=== PATIENT | female | born 1960 | race American Indian/Alaskan Native ===

== ENCOUNTER 2018-10-27 14:30 | Inpatient (IN) | payer MEDICARE ==
--- NOTE | 2018-10-27 15:12 | XRay Report ---
AP CHEST: HISTORY: chest pain AP view of the chest demonstrates a normal mediastinal and cardiac contour with clear lungs and normal bony and soft tissue structures. IMPRESSION: Unremarkable AP chest.
--- NOTE | 2018-10-27 15:34 | Emergency Department Report ---
ED Chest Pain HPI - General Chief Complaint: Chest Pain Stated Complaint: CHEST PAIN Time Seen by Provider: 10/27/18 14:40 Source: patient, EMS Mode of arrival: Stretcher Limitations: No Limitations - History of Present Illness Initial Comments: 58-year-old female presents to the emergency department from home via EMS with a complaint of some left-sided chest pain that started this morning around 7 AM. It is a sharp stabbing sensation and radiates towards her left jaw. It is associated with some shortness of breath, nausea and vomiting. The patient says that this started after a 5-6 day binge drinking session. She also complains of some black stools and some vomiting of blood. She has a past medical history of liver cirrhosis, neuropathy. She says that she quit drinking for a while but just started up on the . She was given a full dose aspirin and 2 nitroglycerin in route with EMS without any relief but it did cause her to have a headache. Primary care physician is Dr. Nick Bellamy and she also has a youth associate through [place]. No recent travel or sick contacts at home. Severity scale (0 -10): 8 - Related Data Home Medications Medication Instructions Recorded Confirmed Last Taken Benztropine [Cogentin] 3 mg PO DAILY 10/27/18 10/27/18 Unknown Gabapentin [Neurontin] 300 mg PO Q8HR 10/27/18 10/27/18 Unknown Meloxicam 15 mg PO BID 10/27/18 10/27/18 Unknown Potassium Chloride [Klor-Con 10] 10 meq PO BID 10/27/18 10/27/18 Unknown buPROPion XL [Wellbutrin Xl] 150 mg PO QAM 10/27/18 10/27/18 Unknown hydrOXYzine PAMOATE [Vistaril] 100 mg PO BID 10/27/18 10/27/18 Unknown predniSONE [Deltasone] 20 mg PO QDAY 10/27/18 10/27/18 Unknown Allergies Allergy/AdvReac Type Severity Reaction Status Date / Time No Known Allergies Allergy Unverified 10/27/18 14:32 Heart Score - HEART Score History: Slightly suspicious EKG: Non-specific Age: 45-65 Risk factors: 1-2 risk factors Troponin: < normal limit HEART Score: 3 - Critical Actions Critical Actions: 0-3 pts:0.9-1.7%risk of adverse cardiac event.Candidate for discharge ED Review of Systems ROS: Stated complaint: CHEST PAIN Other details as noted in HPI Comment: All other systems reviewed and negative Constitutional: denies: chills, fever Eyes: denies: eye pain, vision change ENT: denies: ear pain, throat pain Respiratory: shortness of breath. denies: cough Cardiovascular: chest pain. denies: palpitations Gastrointestinal: nausea, vomiting Genitourinary: denies: dysuria, frequency Musculoskeletal: denies: back pain, arthralgia Skin: denies: rash, lesions Neurological: headache. denies: weakness, numbness, paresthesias ED Past Medical Hx - Past Medical History Previous Medical History?: Yes Additional medical history: cirrhosis. neuropathy - Surgical History Past Surgical History?: Yes Additional Surgical History: tonsilectomy - Social History Smoking Status: Never Smoker Substance Use Type: Alcohol - Medications Home Medications: Home Medications Medication Instructions Recorded Confirmed Last Taken Type Benztropine [Cogentin] 3 mg PO DAILY 10/27/18 10/27/18 Unknown History Gabapentin [Neurontin] 300 mg PO Q8HR 10/27/18 10/27/18 Unknown History Meloxicam 15 mg PO BID 10/27/18 10/27/18 Unknown History Potassium Chloride [Klor-Con 10] 10 meq PO BID 10/27/18 10/27/18 Unknown History buPROPion XL [Wellbutrin Xl] 150 mg PO QAM 10/27/18 10/27/18 Unknown History hydrOXYzine PAMOATE [Vistaril] 100 mg PO BID 10/27/18 10/27/18 Unknown History predniSONE [Deltasone] 20 mg PO QDAY 10/27/18 10/27/18 Unknown History ED Physical Exam - General Limitations: No Limitations - Other Other exam information: GENERAL: The patient is well-developed well-nourished. HEENT: Normocephalic. Atraumatic. Patient has moist mucous membranes. EYES: Extraocular motions are intact. Pupils are equal and reactive to light bilaterally. NECK: Supple. Trachea is midline. CHEST/LUNGS: Clear to auscultation. There is no respiratory distress noted. HEART/CARDIOVASCULAR: Regular. There is no tachycardia. There is no obvious murmur. ABDOMEN: Abdomen is soft, nontender. Patient has normal bowel sounds. There is no abdominal distention. SKIN: Skin is warm and dry. NEURO: The patient is awake, alert, and oriented. The patient is cooperative. The patient has no focal neurologic deficits. The patient has normal speech. MUSCULOSKELETAL: There is no tenderness or deformity. There is no limitation range of motion. There is no evidence of acute injury. RECTAL: There is brown stool without gross blood. Stool negative on guaiac testing. ED Course Vital Signs 10/27/18 10/27/18 10/27/18 14:42 14:45 14:50 Temperature 98.7 F Pulse Rate 92 H 81 89 Respiratory 16 15 16 Rate Blood Pressure 124/70 Blood Pressure 124/78 [Right] O2 Sat by Pulse 98 98 100 Oximetry 10/27/18 10/27/18 10/27/18 15:00 16:00 17:00 Temperature Pulse Rate 85 94 H 79 Respiratory 11 L 20 11 L Rate Blood Pressure 120/68 115/70 127/70 Blood Pressure [Right] O2 Sat by Pulse 99 94 98 Oximetry 10/27/18 10/27/18 10/27/18 18:00 18:30 19:01 Temperature Pulse Rate 79 85 Respiratory 16 18 14 Rate Blood Pressure 149/80 155/81 Blood Pressure [Right] O2 Sat by Pulse 100 Oximetry 10/27/18 10/27/18 20:00 21:01 Temperature Pulse Rate 77 100 H Respiratory 14 14 Rate Blood Pressure 150/77 134/65 Blood Pressure [Right] O2 Sat by Pulse 97 99 Oximetry FELIX score - Felix Score Age > 65: (0) No Aspirin use within the Past 7 Days: (0) No 3 or more CAD Risk Factors: (0) No 2 or more Angina events in past 24 hrs: (1) Yes Known CAD with more than 50% Stenosis: (0) No Elevated Cardiac Markers: (0) No ST Deviation Greater than 0.5mm: (0) No FELIX Score: 1 ED Medical Decision Making - Lab Data Result diagrams: 10/28/18 04:49 10/28/18 04:49 - EKG Data -: EKG Interpreted by Me EKG shows normal: sinus rhythm, axis, intervals, QRS complexes, ST-T waves Rate: normal - EKG Data When compared to previous EKG there are: previous EKG unavailable Interpretation: normal EKG - Radiology Data Radiology results: image reviewed interpreted by me: Chest x-ray does not show any pneumothorax, pleural effusion, pneumonia or obvious focal consolidation. - Medical Decision Making This patient presents to the emergency department with complaint of some chest pain that started after a 5 or 6 day alcohol binge. Patient did not have any withdrawal signs at first but she later developed some tremors and complained of palpitations. EKG did not show any signs of ST elevation OH or dysrhythmia. Labs were mostly unremarkable including negative troponins 3. The patient also complained of some melena and hematemesis. There is been no nausea or vomiting while in the emergency department. I did a rectal examination and there was no gross blood or positive stool on guaiac testing. The patient will be admitted to the hospital for further evaluation of her alcohol withdrawal and her chest pain. She was excepted for admission by the hospitalist service. - Differential Diagnosis GI bleed, OH, costochondritis, GERD, alcohol withdrawal Critical Care Time: No Critical care attestation.: If time is entered above; I have spent that time in minutes in the direct care of this critically ill patient, excluding procedure time. ED Disposition Clinical Impression: Acute chest pain, Hypokalemia Alcohol withdrawal Qualifiers: Complication of substance-induced condition: uncomplicated Qualified Code(s): F10.230 - Alcohol dependence with withdrawal, uncomplicated Disposition: DC-09 OP ADMIT IP TO THIS HOSP Is pt being admited?: Yes Condition: Stable Time of Disposition: 19:56
[2018-10-27] MEDS ORDERED: NACL 0.9% 1000 ML 1,000 ML IV ONE (15:47)
[2018-10-27] MEDS ORDERED: PROTONIX IV ONE (15:47)
[2018-10-27] MEDS ORDERED: MORPHINE IV ONE (15:47)
[2018-10-27 15:48] LABS: Basophils % (Auto) 0.7 % (0.0-1.8); Eosinophils % (Auto) 0.7 % (0.0-4.3); Hematocrit 33.9 % (30.3-42.9); Hemoglobin 11.6 gm/dl (10.1-14.3); Lymphocytes # (Auto) 1.1 K/mm3 (1.2-5.4); Lymphocytes % (Auto) 18.8 % (13.4-35.0); Mean Corpuscular HGB Conc 34 % (30-34); Mean Corpuscular Volume 97 fl (79-97); Monocytes # (Auto) 0.3 K/mm3 (0.0-0.8); Monocytes % (Auto) 5.7 % (0.0-7.3); Red Blood Count 3.52 M/mm3 (3.65-5.03); Red Cell Distribution Width 16.6 % (13.2-15.2)
[2018-10-27 16:03] LABS: BUN/Creatinine Ratio 7; Blood Urea Nitrogen 4 mg/dL (7-17); Calcium 8.8 mg/dL (8.4-10.2); Hemolysis Index 12
[2018-10-27] MEDS ORDERED: K-DUR PO ONE (16:19)
[2018-10-27] MEDS ORDERED: NACL 0.9% 50 ML ONE (16:36)
[2018-10-27] MEDS ORDERED: MORPHINE ONE (16:38)
[2018-10-27] MEDS ORDERED: ATIVAN IV PRN (18:15)
[2018-10-27] MEDS: ATIVAN IV PRN (20:24)
[2018-10-27] MEDS ORDERED: TYLENOL PO PRN (21:47)
[2018-10-27] MEDS ORDERED: SODIUM CHLORIDE FLUSH SYRINGE 10 ML IV PRN (21:47)
[2018-10-27] MEDS ORDERED: MORPHINE IV PRN (21:47)
[2018-10-27] MEDS ORDERED: ZOFRAN IV PRN (21:47)
--- NOTE | 2018-10-27 21:50 | History and Physical Report ---
History of Present Illness Date of examination: 10/27/18 Date of admission: 10/27/18 19:56 History of present illness: 58-year-old woman with a history of cirrhosis, neuropathy, right foot drop comes to the emergency room with complaints of chest pain. Pain is in the epigastric area which she describes as sharp pain, intermittent for less than 1 minute, radiated into the left jaw, intensity 5/10, cannot identify exacerbating or relieving factors. Also complained of black stool 2 days, told 3 episodes, vomiting blood. Denies NSAID use but home medication reveal meloxican Admits to vomiting, shortness of breath, palpitation Review of systems Constitutional: no weight loss, chills, fever Ears, eyes, nose, mouth and throat: no nasal congestion, no nasal discharge, no sinus pressure, no vision change, no red eye. Neck: No neck pain or rigidity. Cardiovascular: + palpitations Respiratory: no cough, shortness of breath Gastrointestinal: no hematochezia, abdominal pain Genitourinary : no frequency , no hematuria Musculoskeletal: no joint swelling or muscle ache Integumentary: no rash, no pruritis Neurological: no parathesias, no focal weakness Endocrine: no cold or heat intolerance, no polyuria or polydipsia Hematologic/Lymphatic: no easy bruising, no easy bleeding, no gland swelling Allergic/Immunologic: no urticaria, no angioedema. PAST MEDICAL HISTORY: cirrhosis, neuropathy, right foot drop PAST SURGICAL HISTORY: Tonsillectomy SOCIAL HISTORY: Drinks 1 pint of vodka a day, no drugs, tobacco FAMILY HISTORY: Hypertension Medications and Allergies Allergies Allergy/AdvReac Type Severity Reaction Status Date / Time No Known Allergies Allergy Unverified 10/27/18 14:32 Home Medications Medication Instructions Recorded Confirmed Last Taken Type Benztropine [Cogentin] 3 mg PO DAILY 10/27/18 10/27/18 Unknown History Gabapentin [Neurontin] 300 mg PO Q8HR 10/27/18 10/27/18 Unknown History Meloxicam 15 mg PO BID 10/27/18 10/27/18 Unknown History Potassium Chloride [Klor-Con 10] 10 meq PO BID 10/27/18 10/27/18 Unknown History buPROPion XL [Wellbutrin Xl] 150 mg PO QAM 10/27/18 10/27/18 Unknown History hydrOXYzine PAMOATE [Vistaril] 100 mg PO BID 10/27/18 10/27/18 Unknown History predniSONE [Deltasone] 20 mg PO QDAY 10/27/18 10/27/18 Unknown History Active Meds: Active Medications Lorazepam (Ativan) 2 mg IV Q1HR PRN PRN Reason: [facility]-Ar 8-15 Last Admin: 10/27/18 20:24 Dose: 2 mg Documented by: Lorazepam (Ativan) 4 mg IV Q1HR PRN PRN Reason: [facility]-Ar 16- Exam - Physical Exam Narrative exam: General Apperance: The patient lying in bed, breathing comfortable HEENT: Normocephalic, atraumatic. Pupils equally round and reactive to light, EOMI, no sclericterus or JVD or thyromegaly or nodule. , no carotid bruit, mucous membranes moist, no exudate or erythema Heart: S1-S2, regular is rhythm Lungs: Clear to auscultation bilaterally, breathing comfortable Abdomen: Positive bowel sounds, soft, nontender, nondistended, no organomegaly Extremities: No edema cyanosis clubbing Skin: no rash, nodule, warm and dry Neuro: cranial nerves 2-12 intact, speech is fluent, motor/sensory intact - Constitutional Vitals: Temp Pulse Resp BP Pulse Ox 98.7 F 77 14 150/77 97 10/27/18 14:50 10/27/18 20:00 10/27/18 20:00 10/27/18 20:00 10/27/18 20:00 Results - Labs CBC & Chem 7: 10/27/18 15:29 10/27/18 15:29 Labs: Abnormal lab results 10/27/18 10/27/18 10/27/18 Range/Units 15:29 15:29 18:39 RBC 3.52 L (3.65-5.03) M/mm3 MCH 33 H (28-32) pg RDW 16.6 H (13.2-15.2) % Lymph # 1.1 L (1.2-5.4) K/mm3 Seg Neutrophils % 74.1 H (40.0-70.0) % Sodium 147 H (137-145) mmol/L Potassium 3.0 L (3.6-5.0) mmol/L Carbon Dioxide 21 L (22-30) mmol/L BUN 4 L (7-17) mg/dL Creatinine 0.6 L (0.7-1.2) mg/dL Glucose 119 H (65-100) mg/dL Magnesium 1.50 L (1.7-2.3) mg/dL - Imaging and Cardiology EKG: image reviewed Chest x-ray: report reviewed Assessment and Plan Assessment Upper GI bleed, rule out gastric ulcer Chest pain Hypernatremia Thrombocytopenia Cirrhosis/Alcohol related neuropathy, right foot drop Alcohol abuse Plan Admit to medicine Start Protonix, IV fluid, consult GI Check cardiac enzymes, obtain stress test Start CIWA protocol with IV ativan DVT prophylaxis
[2018-10-27] MEDS: SODIUM CHLORIDE FLUSH SYRINGE 10 ML IV SCH (23:00)
[2018-10-27 23:02] LABS: Platelet Count 66 K/mm3 (140-440)
[2018-10-28] MEDS: D5/0.45NS 1,000 ML IV SCH (02:45)
[2018-10-28] MEDS: ATIVAN IV PRN ×2 (02:58→14:10)
[2018-10-28 06:01] LABS: Basophils % (Auto) 0.8 % (0.0-1.8); Eosinophils # (Auto) 0.1 K/mm3 (0.0-0.4); Eosinophils % (Auto) 2.1 % (0.0-4.3); Hematocrit 30.1 % (30.3-42.9); Hemoglobin 10.1 gm/dl (10.1-14.3); Lymphocytes # (Auto) 0.8 K/mm3 (1.2-5.4); Lymphocytes % (Auto) 20.2 % (13.4-35.0); Mean Corpuscular HGB Conc 34 % (30-34); Mean Corpuscular Volume 96 fl (79-97); Monocytes # (Auto) 0.3 K/mm3 (0.0-0.8); Monocytes % (Auto) 6.4 % (0.0-7.3); Red Blood Count 3.12 M/mm3 (3.65-5.03); Red Cell Distribution Width 16.3 % (13.2-15.2)
[2018-10-28 06:16] LABS: Platelet Count 40 K/mm3 (140-440)
[2018-10-28 06:28] LABS: BUN/Creatinine Ratio 13; Blood Urea Nitrogen 5 mg/dL (7-17); Calcium 8.1 mg/dL (8.4-10.2); Hemolysis Index 59
[2018-10-28] MEDS: NEURONTIN PO SCH ×4 (07:28→22:07)
[2018-10-28] MEDS ORDERED: LEXISCAN IV ONE ×2 (10:17→11:18)
--- NOTE | 2018-10-28 11:46 | Progress Note ---
Assessment and Plan Assessment and plan: 58F with pmh of cirrhosis, R foot drop, neuropathy, pw chest pain and melena. The patient admits that she had been on an alcohol binge for 4 days prior to having melena Diagnosis Chest pain acute gi bleed hypokalemia hypomagnesemia cirrhosis neuropathy r foot drop etoh abuse and withdrawal Plan -trop neg x3, ekg wnl, cardiology consulted -protonix, GI consult, fup hg daily -electrolytes repleted -counseled on etoh cessation > 16mins -CIWA protocol -dvt ppx- scds in light of GI bleed History Interval history: She feels anxious and jittery, like she is withdrawing from alcohol Review of systems Constitutional: No fevers, no malaise, no joint pains CVS: No chest pain, no orthopnea, no dyspnea on exertion, no pedal edema GI: No abdominal pain, complaining of multiple large melanotic stools Respiratory: No shortness of breath, no wheezing, no coughing Hospitalist Physical - Physical exam Narrative exam: General.: Appears well, no distress, nontoxic HEENT: Moist mucous membranes, extraocular muscles intact, no lymphadenopathy Neck: supple Cardiac: S1-S2 heard Lungs: clear to auscultation bilaterally Abdomen: soft , nontender, nondistended, bowel sounds positive Extremities: no edema clubbing or cyanosis Skin: no rash or lesions Neurologic: no gross focal deficits Psych: calm, and cooperative - Constitutional Vitals: Temp Pulse Resp BP Pulse Ox 99.6 F 99 H 18 134/77 97 10/28/18 08:00 10/28/18 08:00 10/28/18 08:00 10/28/18 08:00 10/28/18 08:50 Results - Labs CBC & Chem 7: 10/28/18 04:49 10/28/18 04:49 Labs: Laboratory Last Values WBC 4.2 K/mm3 (4.5-11.0) L 10/28/18 04:49 RBC 3.12 M/mm3 (3.65-5.03) L 10/28/18 04:49 Hgb 10.1 gm/dl (10.1-14.3) 10/28/18 04:49 Hct 30.1 % (30.3-42.9) L 10/28/18 04:49 MCV 96 fl (79-97) 10/28/18 04:49 MCH 33 pg (28-32) H 10/28/18 04:49 MCHC 34 % (30-34) 10/28/18 04:49 RDW 16.3 % (13.2-15.2) H 10/28/18 04:49 Plt Count 40 K/mm3 (140-440) L 10/28/18 04:49 Lymph % (Auto) 20.2 % (13.4-35.0) 10/28/18 04:49 [facility] % (Auto) 6.4 % (0.0-7.3) 10/28/18 04:49 Eos % (Auto) 2.1 % (0.0-4.3) 10/28/18 04:49 Baso % (Auto) 0.8 % (0.0-1.8) 10/28/18 04:49 Lymph # 0.8 K/mm3 (1.2-5.4) L 10/28/18 04:49 [facility] # 0.3 K/mm3 (0.0-0.8) 10/28/18 04:49 Eos # 0.1 K/mm3 (0.0-0.4) 10/28/18 04:49 Baso # 0.0 K/mm3 (0.0-0.1) 10/28/18 04:49 Seg Neutrophils % 70.5 % (40.0-70.0) H 10/28/18 04:49 Seg Neutrophils # 3.0 K/mm3 (1.8-7.7) 10/28/18 04:49 Sodium 142 mmol/L (137-145) 10/28/18 04:49 Potassium 3.9 mmol/L (3.6-5.0) D 10/28/18 04:49 Chloride 106.1 mmol/L (98-107) 10/28/18 04:49 Carbon Dioxide 21 mmol/L (22-30) L 10/28/18 04:49 Anion Gap 19 mmol/L 10/28/18 04:49 BUN 5 mg/dL (7-17) L 10/28/18 04:49 Creatinine 0.4 mg/dL (0.7-1.2) L 10/28/18 04:49 Estimated GFR > 60 ml/min 10/28/18 04:49 BUN/Creatinine Ratio 13 % 10/28/18 04:49 Glucose 85 mg/dL (65-100) 10/28/18 04:49 Calcium 8.1 mg/dL (8.4-10.2) L 10/28/18 04:49 Phosphorus 2.70 mg/dL (2.5-4.5) 10/27/18 18:39 Magnesium 1.50 mg/dL (1.7-2.3) L 10/27/18 18:39 Troponin T < 0.010 ng/mL (0.00-0.029) 10/27/18 21:00 HCG, Qual Negative (Negative) 10/27/18 15:29 Active Medications - Current Medications Current Medications: Generic Name Dose Route Start Last Admin Trade Name Freq PRN Reason Stop Dose Admin Acetaminophen 650 mg 10/27/18 21:47 Tylenol PO Q4H PRN Pain MILD(1-3)/Fever >100.5/SPIVEY Benztropine Mesylate 3 mg 10/28/18 10:00 Cogentin PO DAILY NASIMA Bupropion HCl 150 mg 10/28/18 10:00 Wellbutrin Xl PO QAM NASIMA Gabapentin 300 mg 10/28/18 06:00 10/28/18 07:28 Neurontin PO Not Given Q8HR NASIMA Dextrose/Sodium Chloride 1,000 mls @ 75 mls/hr 10/27/18 22:00 10/28/18 02:45 D5/0.45ns IV 75 mls/hr DIRECT NASIMA Administration Lorazepam 2 mg 10/27/18 18:15 10/28/18 02:58 Ativan IV 2 mg Q1HR PRN Administration [facility]-Ar 8-15 Lorazepam 4 mg 10/27/18 18:15 Ativan IV Q1HR PRN [facility]-Ar 16-25 Morphine Sulfate 2 mg 10/27/18 21:47 Morphine IV Q4H PRN Pain, Moderate (4-6) Ondansetron HCl 4 mg 10/27/18 21:47 Zofran IV Q8H PRN Nausea And Vomiting Pantoprazole Sodium 40 mg 10/28/18 10:00 Protonix IV QDAY NASIMA Prednisone 20 mg 10/28/18 10:00 Deltasone PO QDAY [facility] Sodium Chloride 10 ml 10/27/18 22:00 10/27/18 23:00 Sodium Chloride Flush Syringe 10 Ml IV 10 ml BID NASIMA Administration Sodium Chloride 10 ml 10/27/18 21:47 Sodium Chloride Flush Syringe 10 Ml IV PRN PRN LINE FLUSH
[2018-10-28] MEDS: DELTASONE PO SCH (12:35)
[2018-10-28] MEDS: COGENTIN PO SCH (12:35)
[2018-10-28] MEDS: WELLBUTRIN XL PO SCH (12:35)
[2018-10-28] MEDS: PROTONIX IV SCH (12:35)
[2018-10-28] MEDS: SODIUM CHLORIDE FLUSH SYRINGE 10 ML IV SCH ×2 (12:35→22:07)
--- NOTE | 2018-10-28 13:58 | Treadmill Report ---
NUCLEAR PERFUSION SCAN REFERRING PHYSICIAN: Hospitalist service. PROTOCOL: The patient was brought to the stress lab in a postabsorptive state, given 10 mCi of technetium 99m at rest. The patient underwent rest imaging. The patient underwent Lexiscan stress test. At peak stress, the patient was given 26 mCi of technetium 99m. Shortly thereafter, the patient underwent stress imaging, raw imaging reveals mild GI artifact, no significant motion artifact. SPECT images examined carefully in horizontal long axis, vertical long axis views. There was normal homogenous uptake of radioisotope in all reported segments. No evidence of significant fixed or reversible perfusion defects suggestive of prior infarction or ischemia. Gated wall motion reveals normal systolic thickening, calculated ejection fraction 78%, no TID. CONCLUSIONS: 1. Normal myocardial perfusion scan without evidence of active ischemia or prior infarction. 2. Normal left ventricular systolic performance without evidence of transient ischemic dilatation or stress-induced segmental wall motion abnormalities. 3. Normal Lexiscan stress test without evidence of diagnostic ST changes, arrhythmias or chest pain during stress or recovery. JOB# [id number]
--- NOTE | 2018-10-28 14:22 | Gastroenterology Consultation ---
History of Present Illness - Reason for Consult Consult date: 10/28/18 black stool Requesting physician: KIARA JHA - History of Present Illness Patient is a 58 y/o female with PMH of alcoholic cirrhosis, neuropathy, and right foot drop who presented to with c/o chest pain after a 5-6 day alcohol binge. Stress test pending for today (EKG and troponins negative). She also c/o black stools and vomiting blood to which GI has been consulted. Rectal exam by ER provider negative. This morning patient was resting in bed w/o acute distress with continued mild CP. Reports vomiting x 2 episodes yesterday with coffee- ground emesis and dark stools x ~2-3 day. No active signs of bleeding today. No hematemesis or hematochezia. Takes Meloxicam at home but no other blood thinning medications. Has a hx of cirrhosis 2/2 ETOH (no know hx of HCV) and states she had quit drinking alcohol for a long time until recent binge. She is followed by provider at [facility] for her cirrhosis per pt. States she is compliant with taking medications at home to include lactulose, xifaxan, nadalol, and diuretics (none are on home medication list in computer). Last EGD was last year (2018) that showed ulcers per pt report (no varices at that time but she believes she was told in the past she had varices). Past History Past Medical History: other (as per HPI) Past Surgical History: tonsillectomy Social history: alcohol abuse Family history: hypertension Medications and Allergies Allergies Allergy/AdvReac Type Severity Reaction Status Date / Time No Known Allergies Allergy Unverified 10/27/18 14:32 Home Medications Medication Instructions Recorded Confirmed Last Taken Type Benztropine [Cogentin] 3 mg PO DAILY 10/27/18 10/27/18 Unknown History Gabapentin [Neurontin] 300 mg PO Q8HR 10/27/18 10/27/18 Unknown History Meloxicam 15 mg PO BID 10/27/18 10/27/18 Unknown History Potassium Chloride [Klor-Con 10] 10 meq PO BID 10/27/18 10/27/18 Unknown History buPROPion XL [Wellbutrin Xl] 150 mg PO QAM 10/27/18 10/27/18 Unknown History hydrOXYzine PAMOATE [Vistaril] 100 mg PO BID 10/27/18 10/27/18 Unknown History predniSONE [Deltasone] 20 mg PO QDAY 10/27/18 10/27/18 Unknown History Active Meds: Active Medications Acetaminophen (Tylenol) 650 mg PO Q4H PRN PRN Reason: Pain MILD(1-3)/Fever >100.5/SPIVEY Benztropine Mesylate (Cogentin) 3 mg PO DAILY [facility] Last Admin: 10/28/18 12:35 Dose: 3 mg Documented by: Bupropion HCl (Wellbutrin Xl) 150 mg PO QAM [facility] Last Admin: 10/28/18 12:35 Dose: 150 mg Documented by: Gabapentin (Neurontin) 300 mg PO Q8HR [facility] Last Admin: 10/28/18 13:51 Dose: Not Given Documented by: Dextrose/Sodium Chloride (D5/0.45ns) 1,000 mls @ 75 mls/hr IV DIRECT [facility] Last Admin: 10/28/18 02:45 Dose: 75 mls/hr Documented by: Lorazepam (Ativan) 2 mg IV Q1HR PRN PRN Reason: CIWA-Ar 8-15 Last Admin: 10/28/18 14:10 Dose: 2 mg Documented by: Lorazepam (Ativan) 4 mg IV Q1HR PRN PRN Reason: CIWA-Ar 16-25 Morphine Sulfate (Morphine) 2 mg IV Q4H PRN PRN Reason: Pain, Moderate (4-6) Ondansetron HCl (Zofran) 4 mg IV Q8H PRN PRN Reason: Nausea And Vomiting Pantoprazole Sodium (Protonix) 40 mg IV QDAY [facility] Last Admin: 10/28/18 12:35 Dose: 40 mg Documented by: Prednisone (Deltasone) 20 mg PO QDAY [facility] Last Admin: 10/28/18 12:35 Dose: 20 mg Documented by: Sodium Chloride (Sodium Chloride Flush Syringe 10 Ml) 10 ml IV BID [facility] Last Admin: 10/28/18 12:35 Dose: 10 ml Documented by: Sodium Chloride (Sodium Chloride Flush Syringe 10 Ml) 10 ml IV PRN PRN PRN Reason: LINE FLUSH medications reviewed/updated as required Review of Systems - Review of Systems All systems: negative Cardiovascular: chest pain Gastrointestinal: coffee ground emesis, melena Exam - Constitutional Vital Signs: Temp Pulse Resp BP Pulse Ox 98.8 F 110 H 18 127/77 100 10/28/18 12:06 10/28/18 12:06 10/28/18 12:06 10/28/18 12:06 10/28/18 12:06 General appearance: no acute distress - Respiratory Respiratory: bilateral: CTA - Cardiovascular Rhythm: other (tachycardia) - Gastrointestinal General gastrointestinal: Present: soft, non-tender, non-distended, normal bowel sounds - Neurologic Neurological: alert and oriented x3 - Labs CBC & Chem 7: 10/28/18 04:49 10/28/18 04:49 Lab Results: Laboratory Results - last 24 hr 10/27/18 10/27/18 10/27/18 15:29 15:29 15:29 WBC 6.0 RBC 3.52 L Hgb 11.6 Hct 33.9 MCV 97 MCH 33 H MCHC 34 RDW 16.6 H Plt Count 66 L Lymph % (Auto) 18.8 Grand % (Auto) 5.7 Eos % (Auto) 0.7 Baso % (Auto) 0.7 Lymph # 1.1 L Grand # 0.3 Eos # 0.0 Baso # 0.0 Seg Neutrophils % 74.1 H Seg Neutrophils # 4.5 Sodium 147 H Potassium 3.0 L Chloride 104.5 Carbon Dioxide 21 L Anion Gap 25 BUN 4 L Creatinine 0.6 L Estimated GFR > 60 BUN/Creatinine Ratio 7 Glucose 119 H Calcium 8.8 Phosphorus Magnesium Troponin T < 0.010 HCG, Qual Negative 10/27/18 10/27/18 10/27/18 18:39 18:39 21:00 WBC RBC Hgb Hct MCV MCH MCHC RDW Plt Count Lymph % (Auto) Grand % (Auto) Eos % (Auto) Baso % (Auto) Lymph # Grand # Eos # Baso # Seg Neutrophils % Seg Neutrophils # Sodium Potassium Chloride Carbon Dioxide Anion Gap BUN Creatinine Estimated GFR BUN/Creatinine Ratio Glucose Calcium Phosphorus 2.70 Magnesium 1.50 L Troponin T < 0.010 < 0.010 HCG, Qual 10/28/18 10/28/18 10/28/18 04:49 04:49 04:49 WBC 4.2 L RBC 3.12 L Hgb 10.1 Hct 30.1 L MCV 96 MCH 33 H MCHC 34 RDW 16.3 H Plt Count 40 L Lymph % (Auto) 20.2 Grand % (Auto) 6.4 Eos % (Auto) 2.1 Baso % (Auto) 0.8 Lymph # 0.8 L Grand # 0.3 Eos # 0.1 Baso # 0.0 Seg Neutrophils % 70.5 H Seg Neutrophils # 3.0 Sodium 142 Potassium 3.9 D Chloride 106.1 Carbon Dioxide 21 L Anion Gap 19 BUN 5 L Creatinine 0.4 L Estimated GFR > 60 BUN/Creatinine Ratio 13 Glucose 85 Calcium 8.1 L Phosphorus Magnesium 1.40 L Troponin T HCG, Qual Assessment and Plan 1.GI bleed (melena?/coffee-ground emesis) 2.H/o cirrhosis 2/2 ETOH; thrombocytopenia 3.CP (CXR, EKG, troponins, and stress test negative) -afebrile -WBC 4.2 -plt 40 -H/H 10.1/30.1 -continue to monitor H/H and transfuse as needed- hold blood thinning medications -patient reports N/V with coffee-ground emesis x 2 episodes yesterday and dark stool x 2-3 days, along with CP following an alcohol binge. No hematemesis or hematochezia. -no active signs of bleeding this am-currently HD stable -etiology-possible ulcer vs other -INR and hepatic panel in am -will tentatively schedule for an EGD in am for further evaluation -continue PPI and supportive care -alcohol cessation discussed/encouraged with patient-monitor for signs of withdrawal -electrolyte management per primary team -will follow
[2018-10-28] MEDS ORDERED: ATIVAN IV PRN (18:01)
[2018-10-28] MEDS: ATIVAN PO PRN ×2 (19:01→22:07)
[2018-10-28] MEDS ORDERED: NON-FORMULARY (Potassium Chloride [Klor-Con 10] 10 MEQ) PO SCH (22:00)
[2018-10-28] MEDS: VISTARIL PO SCH (22:07)
[2018-10-28] MEDS: K-DUR PO SCH (22:07)
[2018-10-29] MEDS: D5/0.45NS 1,000 ML IV SCH (00:08)
[2018-10-29] MEDS: NEURONTIN PO SCH ×3 (05:13→21:39)
[2018-10-29 06:02] LABS: Basophils % (Auto) 0.3 % (0.0-1.8); Eosinophils % (Auto) 0.9 % (0.0-4.3); Hematocrit 28.6 % (30.3-42.9); Hemoglobin 9.8 gm/dl (10.1-14.3); Lymphocytes # (Auto) 0.8 K/mm3 (1.2-5.4); Mean Corpuscular HGB Conc 34 % (30-34); Mean Corpuscular Volume 97 fl (79-97); Monocytes # (Auto) 0.2 K/mm3 (0.0-0.8); Red Blood Count 2.96 M/mm3 (3.65-5.03); Red Cell Distribution Width 16.1 % (13.2-15.2)
[2018-10-29] MEDS: ATIVAN PO PRN ×2 (06:05→15:23)
[2018-10-29 06:08] LABS: INR 2.01 (0.87-1.13)
[2018-10-29 06:14] LABS: Alanine Aminotransferase 51 units/L (7-56); BUN/Creatinine Ratio 6; Bilirubin,Direct 1.1 mg/dL (0-0.2); Blood Urea Nitrogen 3 mg/dL (7-17); Calcium 8.2 mg/dL (8.4-10.2); Hemolysis Index 5
[2018-10-29 06:25] LABS: Platelet Count 30 K/mm3 (140-440)
[2018-10-29] MEDS: VISTARIL PO SCH ×2 (10:06→21:40)
[2018-10-29] MEDS: WELLBUTRIN XL PO SCH (10:06)
[2018-10-29] MEDS: K-DUR PO SCH ×2 (10:06→21:39)
[2018-10-29] MEDS: COGENTIN PO SCH (10:06)
[2018-10-29] MEDS: PROTONIX IV SCH (10:06)
[2018-10-29] MEDS: DELTASONE PO SCH (10:07)
[2018-10-29] MEDS: SODIUM CHLORIDE FLUSH SYRINGE 10 ML IV SCH ×2 (10:07→21:40)
--- NOTE | 2018-10-29 10:34 | Progress Note ---
Assessment and Plan Assessment and plan: 58F with pmh of cirrhosis, R foot drop, neuropathy, pw chest pain and melena. The patient admits that she had been on an alcohol binge for 4 days prior to having melena Diagnosis Chest pain acute gi bleed hypokalemia hypomagnesemia cirrhosis w hypersplenism and thrombocytopenia neuropathy r foot drop etoh abuse and withdrawal Plan -trop neg x3, ekg wnl, cardiology consulted -protonix, GI consult appreciated, 10/29 EGD shows acute gastritis and grade one esophageal varices- non bleeding -electrolytes repleted -counseled on etoh cessation > 16mins -cont CIWA protocol -dvt ppx- scds in light of GI bleed Dispo; home tomorrow if out of withdrawal History Interval history: She feels anxious and jittery, like she is withdrawing from alcohol Review of systems Constitutional: No fevers, no malaise, no joint pains CVS: No chest pain, no orthopnea, no dyspnea on exertion, no pedal edema GI: No abdominal pain, melanotic stools are decreased in frequency Respiratory: No shortness of breath, no wheezing, no coughing Hospitalist Physical - Physical exam Narrative exam: General.: Appears well, no distress, nontoxic HEENT: Moist mucous membranes, extraocular muscles intact, no lymphadenopathy Neck: supple Cardiac: S1-S2 heard Lungs: clear to auscultation bilaterally Abdomen: soft , nontender, nondistended, bowel sounds positive Extremities: no edema clubbing or cyanosis Skin: no rash or lesions Neurologic: no gross focal deficits Psych: calm, and cooperative - Constitutional Vitals: Temp Pulse Resp BP Pulse Ox 98.1 F 94 H 18 154/78 99 10/29/18 07:46 10/29/18 07:43 10/29/18 07:43 10/29/18 07:43 10/29/18 07:43 Results - Labs CBC & Chem 7: 10/29/18 04:26 10/29/18 04:26 Labs: Laboratory Last Values WBC 3.4 K/mm3 (4.5-11.0) L 10/29/18 04:26 RBC 2.96 M/mm3 (3.65-5.03) L 10/29/18 04:26 Hgb 9.8 gm/dl (10.1-14.3) L 10/29/18 04:26 Hct 28.6 % (30.3-42.9) L 10/29/18 04:26 MCV 97 fl (79-97) 10/29/18 04:26 MCH 33 pg (28-32) H 10/29/18 04:26 MCHC 34 % (30-34) 10/29/18 04:26 RDW 16.1 % (13.2-15.2) H 10/29/18 04:26 Plt Count 30 K/mm3 (140-440) L 10/29/18 04:26 Lymph % (Auto) 22.0 % (13.4-35.0) 10/29/18 04:26 Gregory % (Auto) 7.0 % (0.0-7.3) 10/29/18 04:26 Eos % (Auto) 0.9 % (0.0-4.3) 10/29/18 04:26 Baso % (Auto) 0.3 % (0.0-1.8) 10/29/18 04:26 Lymph # 0.8 K/mm3 (1.2-5.4) L 10/29/18 04:26 Gregory # 0.2 K/mm3 (0.0-0.8) 10/29/18 04:26 Eos # 0.0 K/mm3 (0.0-0.4) 10/29/18 04:26 Baso # 0.0 K/mm3 (0.0-0.1) 10/29/18 04:26 Seg Neutrophils % 69.8 % (40.0-70.0) 10/29/18 04:26 Seg Neutrophils # 2.4 K/mm3 (1.8-7.7) 10/29/18 04:26 PT 24.1 Sec. (12.2-14.9) H 10/29/18 04:26 INR 2.01 (0.87-1.13) H 10/29/18 04:26 Sodium 142 mmol/L (137-145) 10/29/18 04:26 Potassium 4.3 mmol/L (3.6-5.0) 10/29/18 04:26 Chloride 108.1 mmol/L (98-107) H 10/29/18 04:26 Carbon Dioxide 24 mmol/L (22-30) 10/29/18 04:26 Anion Gap 14 mmol/L 10/29/18 04:26 BUN 3 mg/dL (7-17) L 10/29/18 04:26 Creatinine 0.5 mg/dL (0.7-1.2) L 10/29/18 04:26 Estimated GFR > 60 ml/min 10/29/18 04:26 BUN/Creatinine Ratio 6 % 10/29/18 04:26 Glucose 115 mg/dL (65-100) H 10/29/18 04:26 Calcium 8.2 mg/dL (8.4-10.2) L 10/29/18 04:26 Phosphorus 2.70 mg/dL (2.5-4.5) 10/27/18 18:39 Magnesium 1.30 mg/dL (1.7-2.3) L 10/29/18 04:26 Total Bilirubin 2.90 mg/dL (0.1-1.2) H 10/29/18 04:26 Direct Bilirubin 1.1 mg/dL (0-0.2) H 10/29/18 04:26 Indirect Bilirubin 1.8 mg/dL 10/29/18 04:26 AST 154 units/L (5-40) H 10/29/18 04:26 ALT 51 units/L (7-56) 10/29/18 04:26 Alkaline Phosphatase 118 units/L (35-129) 10/29/18 04:26 Troponin T < 0.010 ng/mL (0.00-0.029) 10/27/18 21:00 Total Protein 6.3 g/dL (6.3-8.2) 10/29/18 04:26 Albumin 3.0 g/dL (3.9-5) L 10/29/18 04:26 Albumin/Globulin Ratio 0.9 % 10/29/18 04:26 HCG, Qual Negative (Negative) 10/27/18 15:29 Active Medications - Current Medications Current Medications: Generic Name Dose Route Start Last Admin Trade Name Freq PRN Reason Stop Dose Admin Acetaminophen 650 mg 10/27/18 21:47 Tylenol PO Q4H PRN Pain MILD(1-3)/Fever >100.5/SPIVEY Benztropine Mesylate 3 mg 10/28/18 10:00 10/29/18 10:06 Cogentin PO 3 mg DAILY [facility] Administration Bupropion HCl 150 mg 10/28/18 10:00 10/29/18 10:06 Wellbutrin Xl PO 150 mg QAM [facility] Administration Gabapentin 300 mg 10/28/18 06:00 10/29/18 05:13 Neurontin PO 300 mg Q8HR [facility] Administration Hydroxyzine Pamoate 100 mg 10/28/18 22:00 10/29/18 10:06 Vistaril PO 100 mg BID [facility] Administration Dextrose/Sodium Chloride 1,000 mls @ 75 mls/hr 10/27/18 22:00 10/29/18 00:08 D5/0.45ns IV 75 mls/hr DIRECT [facility] Administration Magnesium Sulfate 4 gm in 100 mls @ 25 mls/hr 10/29/18 11:00 Magnesium Sulfate 4gm/100ml IV 10/29/18 14:59 ONCE ONE Phytonadione 10 mg/ Sodium 51 mls @ 100 mls/hr 10/29/18 11:00 Chloride IV 10/31/18 10:31 DAILY [facility] Lorazepam 4 mg 10/27/18 18:15 Ativan IV Q1HR PRN CIWA-Ar 16-25 Lorazepam 2 mg 10/28/18 18:01 10/29/18 06:05 Ativan PO 2 mg Q1H PRN Administration CIWA-Ar 8-15 Lorazepam 4 mg 10/28/18 18:01 Ativan IV Q15MIN PRN CIWA-Ar >25 Morphine Sulfate 2 mg 10/27/18 21:47 Morphine IV Q4H PRN Pain, Moderate (4-6) Ondansetron HCl 4 mg 10/27/18 21:47 Zofran IV Q8H PRN Nausea And Vomiting Pantoprazole Sodium 40 mg 10/28/18 10:00 10/29/18 10:06 Protonix IV 40 mg QDAY [facility] Administration Potassium Chloride 10 meq 10/28/18 22:00 10/29/18 10:06 K-Dur PO 10 meq BID [facility] Administration Prednisone 20 mg 10/28/18 10:00 10/29/18 10:07 Deltasone PO 20 mg QDAY [facility] Administration Sodium Chloride 10 ml 10/27/18 22:00 10/29/18 10:07 Sodium Chloride Flush Syringe 10 Ml IV 10 ml BID [facility] Administration Sodium Chloride 10 ml 10/27/18 21:47 Sodium Chloride Flush Syringe 10 Ml IV PRN PRN LINE FLUSH
[2018-10-29] MEDS ORDERED: WATER FOR IRRIG STERILE IR ONE (10:56)
[2018-10-29] MEDS ORDERED: MAGNESIUM SULFATE 4GM/100ML 4 GM/100 ML BAG IV ONE (11:00)
--- NOTE | 2018-10-29 11:22 | Anesthesia Consultation ---
Anesthesia Consult and Med Hx Date of service: 10/29/18 - Airway Anesthetic Teeth Evaluation: Good (upper and lower braces) ROM Head & Neck: Adequate Mental/Hyoid Distance: Adequate Mallampati Class: Class II Intubation Access Assessment: Probably Good - Pre-Operative Health Status ASA Pre-Surgery Classification: ASA3 Proposed Anesthetic Plan: MAC - Pulmonary Hx Smoking: Yes - Central Nervous System Hx Neuromuscular Disorder: Yes (neuropathy, right foot drop) Hx Psychiatric Problems: Yes (depression) - Gastrointestinal Hx Ulcer: Yes (abdominal pain) - Endocrine Hx Cirrhosis: Yes (alcoholic) - Other Systems Hx Alcohol Use: Yes (withdrawal)
--- NOTE | 2018-10-29 11:26 | Anesthesia Day of Surgery ---
Anesthesia Day of Surgery - Day of Surgery Patient Examined: Yes Patient H&P Reviewed: Yes Patient is NPO: Yes
[2018-10-29] MEDS ORDERED: DIPRIVAN 10 MG/ML IV ONE (11:30)
--- NOTE | 2018-10-29 11:44 | Post Operative Note ---
Pre-op diagnosis: Melena Post-op diagnosis: other (Gastritis, early Esophag Varices) Findings: 1. Grade I Esophageal varices in lower third, low risk to bleed 2. Moderate erosive gastritis 3. No active bleeding Procedure: EGD Anesthesia: MAC Surgeon: IVELISSE BROWNE Estimated blood loss: none Pathology: none Specimen disposition: other (N/A) Condition: stable Disposition: floor (Recs: 1. MVI and protonix PO daily. 2. D/C EtOH. 3. May d/c home when risk of DTs resolved. 4. OK to advance to regular diet. 5. Patient should avoid all NSAIDs. 6. Discriminate Function too low to consider steroids.)
[2018-10-29] MEDS ORDERED: NACL 0.9% 1000 ML 1,000 ML IV SCH (12:00)
--- NOTE | 2018-10-29 12:15 | Operative Report ---
PROCEDURE PERFORMED: Esophagogastroduodenoscopy. PREOPERATIVE DIAGNOSIS: Melena. POSTOPERATIVE DIAGNOSES: Esophageal varices and erosive gastritis. ENDOSCOPIST: Alen Mckeon MD INSTRUMENT: [employer] video endoscope. MEDICATIONS: MAC anesthesia by [facility]. COMPLICATIONS: No apparent complications. ESTIMATED BLOOD LOSS: None. SPECIMENS: None. IMPLANTS: None. ASSISTANTS: None. CONDITION AT COMPLETION: Stable. TECHNIQUE: The patient was informed of the risks and benefits of the procedure. She signed the informed consent to proceed. She was placed in the left lateral decubitus position. The above sedative medications were given. Her vital signs remained stable throughout the procedure. The instrument was advanced from the mouth to the second portion of the duodenum under direct visualization. At that point, the bowel was insufflated and the endoscope was slowly withdrawn. FINDINGS: 1. No active bleeding or blood clots noted in the upper GI tract. 2. Moderate erosive gastritis with multiple erosions in the antrum, likely medication induced, but biopsies were not taken due to her low platelet count and coagulopathy. 3. Small hiatal hernia. 4. Grade 1 esophageal varices that flattened on insufflation with air, in the lower third of the esophagus. RECOMMENDATIONS: 1. Continue daily multivitamin and Protonix oral therapy. 2. Discontinue alcohol abuse and nonsteroidal anti-inflammatory drug use. 3. May discharge the patient home and the risk of delirium tremens has resolved. 4. Okay to advance to regular diet. 5. The discriminant function of her liver disease is currently too low to consider steroids. JOB# [id number] CLINT/NTS
[2018-10-29] MEDS: PROTONIX PO SCH (13:52)
[2018-10-29] MEDS: VITAMIN K (ADULT ONLY) 10 MG in NACL 0.9% 50 ML IV SCH (13:52)
[2018-10-30] MEDS: ATIVAN PO PRN ×2 (01:55→23:27)
[2018-10-30] MEDS: NEURONTIN PO SCH ×3 (05:39→23:19)
[2018-10-30 06:31] LABS: Basophils % (Auto) 0.2 % (0.0-1.8); Eosinophils # (Auto) 0.1 K/mm3 (0.0-0.4); Eosinophils % (Auto) 1.6 % (0.0-4.3); Hematocrit 29.1 % (30.3-42.9); Hemoglobin 9.9 gm/dl (10.1-14.3); Lymphocytes # (Auto) 0.9 K/mm3 (1.2-5.4); Mean Corpuscular HGB Conc 34 % (30-34); Mean Corpuscular Volume 97 fl (79-97); Monocytes # (Auto) 0.4 K/mm3 (0.0-0.8); Monocytes % (Auto) 7.5 % (0.0-7.3); Red Cell Distribution Width 16.5 % (13.2-15.2)
[2018-10-30 06:32] LABS: Platelet Count 37 K/mm3 (140-440)
[2018-10-30 06:54] LABS: Alanine Aminotransferase 46 units/L (7-56); Albumin 2.9 g/dL (3.9-5); BUN/Creatinine Ratio 7; Blood Urea Nitrogen 4 mg/dL (7-17); Calcium 8.3 mg/dL (8.4-10.2); Hemolysis Index 0
[2018-10-30] MEDS ORDERED: NACL 0.9% 1000 ML 1,000 ML ONE (07:15)
[2018-10-30] MEDS: K-DUR PO SCH ×2 (09:43→23:19)
[2018-10-30] MEDS: VITAMIN K (ADULT ONLY) 10 MG in NACL 0.9% 50 ML IV SCH (09:43)
[2018-10-30] MEDS: VISTARIL PO SCH ×2 (09:43→23:20)
[2018-10-30] MEDS: COGENTIN PO SCH (09:43)
[2018-10-30] MEDS: DELTASONE PO SCH (09:43)
[2018-10-30] MEDS: WELLBUTRIN XL PO SCH (09:43)
[2018-10-30] MEDS: SODIUM CHLORIDE FLUSH SYRINGE 10 ML IV SCH ×2 (09:44→23:23)
[2018-10-30] MEDS: D5/0.45NS 1,000 ML IV SCH (10:15)
[2018-10-30] MEDS: PROTONIX PO SCH (10:15)
--- NOTE | 2018-10-30 11:05 | Gastroenterology Progress Note ---
Assessment and Plan 1.GI bleed (melena?/coffee-ground emesis) 2.H/o cirrhosis 2/2 ETOH; thrombocytopenia 3.CP (CXR, EKG, troponins, and stress test negative) -afebrile -WBC 4.8 -plt 37, INR 2.01 -LFTs trending down (T.randall 2.20, AST 127, ALT 46, alk phos 132)- 2/2 ETOH -H/H 9.9/29.1-stable -continue to monitor H/H and transfuse as needed- hold blood thinning medications -s/p EGD yesterday that showed moderate erosive gastritis and Grade I esophageal varices w/o bleeding stigmata (low risk to bleed) -clinically, patient is stable with no active signs of bleeding. Denies abd pain or N/v. Tolerating diet. No encephlapathy noted upon exam. -DF <30 with no recommendations for steroids -avoid NSAIDs -continue MVI and PPI -continue supportive care -further management of cirrhosis as outpatient -alcohol cessation discussed/encouraged with patient-monitor for signs of withdrawal -electrolyte management per primary team -patient okay to be d/c per GI standpoint on PPI with f/u in clinic in 2-3 weeks -will sign off, please call if needed Subjective Date of service: 10/30/18 Principal diagnosis: black stool Interval history: No acute distress or active signs of bleeding overnight or this am. Denies abd pain or N/V. Tolerating diet. Objective - Constitutional Vitals: Temp Pulse Resp BP Pulse Ox 98.2 F 103 H 18 125/72 100 10/30/18 08:25 10/30/18 08:24 10/30/18 08:24 10/30/18 08:24 10/30/18 08:24 General appearance: no acute distress - Respiratory Respiratory: bilateral: CTA - Cardiovascular Rhythm: regular - Gastrointestinal General gastrointestinal: Present: soft, non-tender, non-distended, normal bowel sounds - Neurologic Neurological: alert and oriented x3 - Labs CBC & Chem 7: 10/30/18 04:40 10/30/18 04:40 Labs: Laboratory Results - last 24 hr 10/30/18 10/30/18 04:40 04:40 WBC 4.8 RBC 3.00 L Hgb 9.9 L Hct 29.1 L MCV 97 MCH 33 H MCHC 34 RDW 16.5 H Plt Count 37 L Lymph % (Auto) 18.0 Barber % (Auto) 7.5 H Eos % (Auto) 1.6 Baso % (Auto) 0.2 Lymph # 0.9 L Barber # 0.4 Eos # 0.1 Baso # 0.0 Seg Neutrophils % 72.7 H Seg Neutrophils # 3.5 Sodium 142 Potassium 4.1 Chloride 108.1 H Carbon Dioxide 24 Anion Gap 14 BUN 4 L Creatinine 0.6 L Estimated GFR > 60 BUN/Creatinine Ratio 7 Glucose 131 H Calcium 8.3 L Magnesium 2.00 Total Bilirubin 2.20 H AST 127 H ALT 46 Alkaline Phosphatase 132 H Total Protein 6.2 L Albumin 2.9 L Albumin/Globulin Ratio 0.9
--- NOTE | 2018-10-30 17:44 | Progress Note ---
Assessment and Plan Chest pain acute gi bleed hypokalemia hypomagnesemia cirrhosis w hypersplenism and thrombocytopenia neuropathy r foot drop etoh abuse and withdrawal Plan -trop neg x3, ekg wnl, cardiology consulted. Stress test was normal -protonix, GI consult appreciated, 10/29 EGD shows acute gastritis and grade one esophageal varices- non bleeding -electrolytes repleted -counseled on etoh cessation > 16mins -cont CIWA protocol -dvt ppx- scds in light of GI bleed - Discharge home today Subjective Date of service: 10/30/18 Principal diagnosis: black stool Interval history: 58F with pmh of cirrhosis, R foot drop, neuropathy, pw chest pain and melena. The patient admits that she had been on an alcohol binge for 4 days prior to having melena which has improved Diagnosis Chest pain acute gi bleed hypokalemia hypomagnesemia cirrhosis w hypersplenism and thrombocytopenia neuropathy r foot drop etoh abuse and withdrawal Plan -trop neg x3, ekg wnl, cardiology consulted -protonix, GI consult appreciated, 10/29 EGD shows acute gastritis and grade one esophageal varices- non bleeding -electrolytes repleted -counseled on etoh cessation > 16mins -cont CIWA protocol -dvt ppx- scds in light of GI bleed Objective - Exam Narrative Exam: Constitutional: Well-nourished well-developed. In no distress Head: Normocephalic atraumatic Eyes: Pupils are equal round and reactive to light Nose: No enlarged turbinates, no septal deviation. Mouth: Moist mucous membranes. Neck: Supple no thyromegaly. No bruit. No JVD Heart: Regular rate and rhythm, S1-S2 normal. No rubs murmurs or gallop Lungs: Clear to auscultation bilaterally. no rales or rhonchi Abdomen: Soft, nontender. Bowel sound are present. Extremities: No edema, no cyanosis, no clubbing. Neuro: Alert oriented Oriented x3. Fine tremor in both out stretched upper extremities. Skin: No rashes or hyperpigmented spots Musculoskeletal system: No joint pain or swelling Hematological: No petechia or subcutanous hemorrhages. Immunological: No multiple septic spots on the skin Lymphatic: No generalized lymphadenopathy Psychiatry: Euthymic. Calm. - Constitutional Vitals: Vital Signs - 12hr 10/30/18 10/30/1810/30/19 08:24 08:25 10:00 Temperature 98.2 F Pulse Rate 103 H 103 H Respiratory 18 Rate Blood Pressure 125/72 O2 Sat by Pulse 100 Oximetry 10/30/18 10/30/18 16:39 16:46 Temperature 98.9 F Pulse Rate 94 H Respiratory 18 Rate Blood Pressure 122/88 O2 Sat by Pulse 99 Oximetry General appearance: Present: no acute distress, well-nourished - EENT Eyes: PERRL, EOM intact ENT: hearing intact, clear oral mucosa Ears: bilateral: normal - Neck Neck: supple, normal ROM - Respiratory Respiratory effort: normal Respiratory: bilateral: CTA - Breasts Breasts: normal - Cardiovascular Rhythm: regular Heart Sounds: Present: S1 & S2. Absent: gallop, rub Extremities: pulses intact, No edema, normal color, Full ROM - Gastrointestinal General gastrointestinal: Present: soft, non-tender, non-distended, normal bowel sounds - Genitourinary Female genitourinary: normal - Integumentary Integumentary: clear, warm, dry - Musculoskeletal Musculoskeletal: 1, strength equal bilaterally - Neurologic Neurologic: moves all extremities - Psychiatric Psychiatric: memory intact, appropriate mood/affect, intact judgment & insight - Labs CBC & Chem 7: 10/31/18 05:23 10/31/18 05:23 Labs: Abnormal lab results 10/30/18 10/30/18 Range/Units 04:40 04:40 RBC 3.00 L (3.65-5.03) M/mm3 Hgb 9.9 L (10.1-14.3) gm/dl Hct 29.1 L (30.3-42.9) % MCH 33 H (28-32) pg RDW 16.5 H (13.2-15.2) % Plt Count 37 L (140-440) K/mm3 Talbot % (Auto) 7.5 H (0.0-7.3) % Lymph # 0.9 L (1.2-5.4) K/mm3 Seg Neutrophils % 72.7 H (40.0-70.0) % Chloride 108.1 H (98-107) mmol/L BUN 4 L (7-17) mg/dL Creatinine 0.6 L (0.7-1.2) mg/dL Glucose 131 H (65-100) mg/dL Calcium 8.3 L (8.4-10.2) mg/dL Total Bilirubin 2.20 H (0.1-1.2) mg/dL AST 127 H (5-40) units/L Alkaline Phosphatase 132 H (35-129) units/L Total Protein 6.2 L (6.3-8.2) g/dL Albumin 2.9 L (3.9-5) g/dL
[2018-10-31 04:51] VITALS: BP 127/75
[2018-10-31] MEDS: NEURONTIN PO SCH ×2 (05:13→16:20)
[2018-10-31 06:22] LABS: Basophils % (Auto) 0.3 % (0.0-1.8); Eosinophils % (Auto) 0.7 % (0.0-4.3); Hematocrit 31.3 % (30.3-42.9); Hemoglobin 10.8 gm/dl (10.1-14.3); Lymphocytes % (Auto) 19.3 % (13.4-35.0); Mean Corpuscular HGB Conc 35 % (30-34); Mean Corpuscular Volume 98 fl (79-97); Monocytes # (Auto) 0.4 K/mm3 (0.0-0.8); Red Blood Count 3.19 M/mm3 (3.65-5.03); Red Cell Distribution Width 17.2 % (13.2-15.2)
[2018-10-31 06:24] LABS: Platelet Count 44 K/mm3 (140-440)
[2018-10-31 06:59] LABS: BUN/Creatinine Ratio 14; Blood Urea Nitrogen 7 mg/dL (7-17); Calcium 8.6 mg/dL (8.4-10.2); Hemolysis Index 13
[2018-10-31] MEDS: PROTONIX PO SCH (10:40)
[2018-10-31] MEDS: DELTASONE PO SCH (10:40)
[2018-10-31] MEDS: K-DUR PO SCH (10:40)
[2018-10-31] MEDS: VITAMIN K (ADULT ONLY) 10 MG in NACL 0.9% 50 ML IV SCH (10:41)
[2018-10-31] MEDS: ATIVAN PO PRN (11:20)
[2018-10-31] MEDS: SODIUM CHLORIDE FLUSH SYRINGE 10 ML IV SCH (14:02)
[2018-10-31] MEDS: VISTARIL PO SCH ×2 (14:03→16:21)
--- NOTE | 2018-10-31 15:04 | Discharge Summary ---
Providers - Providers Date of Admission: 10/27/18 19:56 Date of discharge: 10/31/18 Attending physician: DIANA CHAUHAN 10/27/18 21:47 Consult to Physician [CONS] Routine Comment: spoke with primo at 0902 Consulting Provider: IVELISSE BROWNE Physician Instructions: Reason For Exam: black nico 10/28/18 14:52 Physical Therapy Evaluation and Treat [CONS] Routine Comment: Reason For Exam: rt le weakness [facility] Reason for admission: chest pain, GI bleeding, alcohol abuse Condition: Stable Pertinent studies: Stress test that was normal, EGD that showed erosive gastritis, hiatal hernia, stage I esophageal varices. Procedures: EGD Hospital course: 58-year-old woman with a history of cirrhosis, neuropathy, right foot drop comes to the emergency room with complaints of chest pain. Pain is in the epigastric area which she describes as sharp pain, intermittent for less than 1 minute, radiated into the left jaw, intensity 5/10, cannot identify exacerbating or relieving factors. Also complained of black stool 2 days, told 3 episodes, vomiting blood. Denies NSAID use but home medication reveal meloxican Admits to vomiting, shortness of breath, palpitation. Patient admitted for GI bleeding and for chest pain. Had fine tremors. Serial cardiac enzymes and EKG were unremarkable. Lexiscan stress test was done. Findings were unremarkable for any ischemic events. On admission patient was commenced on IV Protonix, IV fluids, nothing by mouth. EGD was done. Findings were remarkable for erosive gastritis, hiatal hernia, stage I esophageal varices. Patient tolerated to regular diet at this point with no nausea, vomiting, hematemesis or melena. Denies a history of alcohol abuse. Counseling was done. Tremor resolved. 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 She is discharged today to follow up with primary Physician in 5 days and the bakery deliverer in 1-2 weeks Disposition: [id number] TO HOME OR SELFCARE Time spent for discharge: 40 [id number] mins - Discharge Diagnoses (1) Peripheral neuropathy Status: Acute (2) Acute chest pain Status: Acute (3) Alcohol withdrawal Status: Acute Qualifiers: Complication of substance-induced condition: uncomplicated Qualified Code(s): F10.230 - Alcohol dependence with withdrawal, uncomplicated (4) Hypokalemia Status: Acute Core Measure Documentation - Palliative Care Palliative Care/ Comfort Measures: Not Applicable - Core Measures Any of the following diagnoses?: none Exam - Physical Exam Narrative exam: Constitutional: Well-nourished well-developed. In no distress Head: Normocephalic atraumatic Eyes: Pupils are equal round and reactive to light Nose: No enlarged turbinates, no septal deviation. Mouth: Moist mucous membranes. Neck: Supple no thyromegaly. No bruit. No JVD Heart: Regular rate and rhythm, S1-S2 normal. No rubs murmurs or gallop Lungs: Clear to auscultation bilaterally. no rales or rhonchi Abdomen: Soft, nontender. Bowel sound are present. Extremities: No edema, no cyanosis, no clubbing. Neuro: Bilateral foot drop. Alert oriented Oriented x3. Skin: No rashes or hyperpigmented spots Musculoskeletal system: No joint pain or swelling Hematological: No petechia or subcutanous hemorrhages. Immunological: No multiple septic spots on the skin Lymphatic: No generalized lymphadenopathy Psychiatry: Euthymic. Calm. - Constitutional Vitals: Temp Pulse Resp BP Pulse Ox 98.1 F 83 16 127/75 97 10/31/18 04:12 10/31/18 04:12 10/31/18 04:12 10/31/18 04:12 10/31/18 04:12 Plan Activity: fall precautions Weight Bearing Status: Non-Weight Bearing Diet: regular Follow up with: DAVID GILLIS MD [Primary Care Provider] - 3-5 Days Prescriptions: Benztropine [Cogentin] 3 mg PO DAILY #30 tablet predniSONE [Deltasone] 20 mg PO QDAY #10 tablet Potassium Chloride [Klor-Con 10] 10 meq PO BID #20 tablet.er Gabapentin [Neurontin] 300 mg PO Q8HR #90 capsule Pantoprazole [Protonix TAB] 40 mg PO QDAY #30 tablet hydrOXYzine PAMOATE [Vistaril] 100 mg PO BID #60 capsule buPROPion XL [Wellbutrin XL] 150 mg PO QAM #30 tablet
[2018-10-31] MEDS: COGENTIN PO SCH (16:21)
[2018-10-31] MEDS: WELLBUTRIN XL PO SCH (16:21)
== END 2018-10-31 18:00 | disposition home or self-care (01) | DRG 378 ==
LOC: ED 14:30 → 4A 19:56
PROVIDERS: ADMIT Internal Medicine; ATTEND Family Medicine
PROC: 0DJ08ZZ Inspection of Upper Intestinal Tract, Via Natural or Artificial Opening Endoscopic (ICD-10-PCS; principal; 2018-10-29)
DX: K29.61 Other gastritis with bleeding (principal); F10.239 Alcohol dependence with withdrawal, unspecified; E87.0 Hyperosmolality and hypernatremia; R07.9 Chest pain, unspecified; E87.6 Hypokalemia; F32.9 Major depressive disorder, single episode, unspecified; F17.200 Nicotine dependence, unspecified, uncomplicated; K44.9 Diaphragmatic hernia without obstruction or gangrene; G62.1 Alcoholic polyneuropathy; E83.42 Hypomagnesemia; I85.10 Secondary esophageal varices without bleeding; D69.6 Thrombocytopenia, unspecified; D73.1 Hypersplenism; K70.30 Alcoholic cirrhosis of liver without ascites; Z82.49 Family history of ischemic heart disease and other diseases of the circulatory system; Z79.899 Other long term (current) drug therapy
CPT/HCPCS: 36415; 71045; 78452; 80048; 80053; 80076; 83735; 84100; 84484; 84703; 85025; 85610; 93005; 93010; 93017; 96361; 96374; 96375; G0378; A9502; C9113; J2060; J2270; J2704; J2785; J3430; J3475; J7030; J7512; Q0177

== ENCOUNTER 2019-09-17 23:27 | Emergency (ER) | payer MEDICARE ==
[2019-09-17 23:39] VITALS: BP 142/54
--- NOTE | 2019-09-18 02:13 | XRay Report ---
RIGHT SHOULDER 3 VIEWS INDICATION / CLINICAL INFORMATION: Right shoulder pain COMPARISON: None available. FINDINGS: BONES / JOINT(S): No acute fracture or subluxation. No significant arthritis. SOFT TISSUES: No significant abnormality. ADDITIONAL FINDINGS: None. Signer Name: Josep Nolan MD Signed: 09/18/2019 2:08 AM Workstation Name: [id number]
== END 2019-09-18 03:13 | disposition left against medical advice (07) ==
LOC: ED 23:27
DX: M25.511 Pain in right shoulder (principal); Z53.21 Procedure and treatment not carried out due to patient leaving prior to being seen by health care provider